=== PATIENT | female | born 1945 | race Caucasian/White ===

== ENCOUNTER 2021-04-12 09:54 | Outpatient (CLI) | payer MEDICARE, OTHER, SELFPAY ==
--- NOTE | 2021-04-12 10:17 | XR_ITS ---
WS: [id number] Right arm and humerus, 2 views, 04/12/2021 Clinical Data: RIGHT ARM PAIN Comparison: None. Findings: No fractures or dislocations are seen. The shaft of the humerus is intact. The soft tissues are norm al. XR/[place] [id number] Impression: Negative right arm and humerus.
--- NOTE | 2021-04-12 10:17 | XR_ITS ---
WS: [id number] Right hip, AP and frog leg views, 04/12/2021 Clinical Data: RT HIP PAIN Comparison: None. Findings: No fractures or dislocations are seen. The hip joint is intact. The soft tissues are not remarkable. The adjacent pelvis is normal. There is a spur of the acetabulum. 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 Tonnis classification: grade 1: sclerosis of femoral head and acetabulum or sli ght joint space narrowing or slight lipping at joint margins
--- NOTE | 2021-04-12 10:17 | XR_ITS ---
WS: [id number] Right shoulder, 3 views, 04/12/2021 Clinical Data: RIGHT ARM PAIN Comparison: None. Findings: No fractures or dislocations are seen. The AC joint is normal. The adjacent right clavicle, right sca pula and ribs are normal. The soft tissues are unremarkable. XR/XR shoulder RT min 2V* [id number] Impression: Negative right shoulder.
--- NOTE | 2021-04-12 10:17 | XR_ITS ---
WS: [id number] Right elbow, 3 views, 04/12/2021 Clinical Data: RIGHT ELBOW PAIN Comparison: None. Findings: No fractures or dislocations are seen. The radial head is normal. The soft tissues are unremarkable. XR/XR elbow RT min 3V* [id number] Impression: Negative right elbow.
== END 2021-04-12 09:55 | disposition home or self-care (01) ==
PROVIDERS: PCP Nurse Practitioner Family; Visit Provider Nurse Practitioner Family
DX: M79.601 Pain in right arm (principal); M25.551 Pain in right hip; M25.521 Pain in right elbow
CPT/HCPCS: 73030; 73060; 73080; 73502

== ENCOUNTER 2021-06-11 11:34 | Outpatient (CLI) | payer MEDICARE, OTHER, SELFPAY ==
--- NOTE | 2021-06-11 11:39 | US_ITS ---
WS: [id number] INDICATION: Lipoma. Lump right arm. TECHNIQUE: Ultrasound soft tissue area of concern. FINDINGS: Ultrasound soft tissue area of concern right upper arm. Small anechoic cystic appearing les ion in the area of concern measuring 3.5 x 3.4 x 3.7 mm. No internal vascularity. US/US soft tissue/extremity [id number] IMPRESSION: Small anechoic cystic appearing lesion in the area of concern measu ring 3.5 x 3.4 x 3.7 millimeters. No visualized lipoma.
== END 2021-06-11 11:35 | disposition home or self-care (01) ==
LOC: RAD 11:37
PROVIDERS: PCP Nurse Practitioner Family; Visit Provider Nurse Practitioner Family
DX: D17.21 Benign lipomatous neoplasm of skin and subcutaneous tissue of right arm (principal)
CPT/HCPCS: 76882

== ENCOUNTER 2021-06-24 06:00 | Outpatient (RCR) | payer MEDICARE, OTHER, SELFPAY | END 2021-07-22 13:06 | disposition home or self-care (01) | LOC: APT 06:00 | PROVIDERS: PCP Nurse Practitioner Family; Visit Provider Orthopaedic Surgery | DX: M48.062 Spinal stenosis, lumbar region with neurogenic claudication (principal); M41.129 Adolescent idiopathic scoliosis, site unspecified | CPT/HCPCS: 97110; 97162; 97164 ==

== ENCOUNTER → 2021-09-16 08:14 | Outpatient (BNVA) | payer MEDICARE, OTHER, SELFPAY | PROVIDERS: PCP Nurse Practitioner Family; Visit Provider Obstetrics & Gynecology | DX: D48.9 Neoplasm of uncertain behavior, unspecified (principal) | CPT/HCPCS: 76830 ==

== ENCOUNTER → 2022-09-16 09:14 | Outpatient (BNVA) | payer MEDICARE, OTHER, SELFPAY | PROVIDERS: PCP Nurse Practitioner Family; Visit Provider Nurse Practitioner Family | DX: D48.9 Neoplasm of uncertain behavior, unspecified (principal) | CPT/HCPCS: 88305 ==

== ENCOUNTER → 2023-06-01 08:03 | Outpatient (BNVA) | payer MEDICARE, OTHER, SELFPAY | PROVIDERS: PCP Nurse Practitioner Family; Visit Provider Internal Medicine | DX: E04.2 Nontoxic multinodular goiter (principal); E03.9 Hypothyroidism, unspecified; I48.91 Unspecified atrial fibrillation; Z79.890 Hormone replacement therapy | CPT/HCPCS: 99204 ==

== ENCOUNTER → 2023-06-08 09:13 | Outpatient (BNVA) | payer MEDICARE, OTHER, SELFPAY | PROVIDERS: PCP Nurse Practitioner Family; Visit Provider Internal Medicine | DX: E03.9 Hypothyroidism, unspecified (principal) | CPT/HCPCS: 84439 ==

== ENCOUNTER 2023-06-11 08:53 | Outpatient (CLI) | payer MEDICARE, OTHER, SELFPAY ==
--- NOTE | 2023-06-11 09:30 | US_ITS ---
WS: [id number] ULTRASOUND THYROID TECHNIQUE: Ultrasound of the thyroid. CLINICAL INFORMATION: thyroid nodules COMPARISON: None. FINDINGS: Thyroid: Atrophic, hypoechoic, and coarse heterogeneous thyroid echotexture. No suspicious cystic or solid thyroid nodules Right thyroid lobe: 2.9 cm x 0.7 cm x 0.9 cm 0.9 cc Left thyroid lobe: 2.4 cm x 0.7 cm x 0.7 cm. 0.6 cc Isthmus: 0.1 mm. Cervical lymphadenopathy: None. IMPRESSION: 1. Atrophic thyroid with coarse heterogeneous echotexture. 2. No suspicious cystic or solid nodules to target for biopsy.
== END 2023-06-11 08:54 | disposition home or self-care (01) ==
PROVIDERS: PCP Nurse Practitioner Family; Visit Provider Internal Medicine
DX: E03.9 Hypothyroidism, unspecified (principal); E04.2 Nontoxic multinodular goiter
CPT/HCPCS: 76536

== ENCOUNTER → 2023-08-18 07:39 | Outpatient (BNVA) | payer MEDICARE, OTHER, SELFPAY | PROVIDERS: PCP Nurse Practitioner Family; Visit Provider Internal Medicine | DX: E03.9 Hypothyroidism, unspecified (principal); I10 Essential (primary) hypertension; Z79.890 Hormone replacement therapy | CPT/HCPCS: 99214 ==

== ENCOUNTER → 2023-11-12 09:02 | Outpatient (BNVA) | payer MEDICARE, OTHER, SELFPAY | PROVIDERS: PCP Nurse Practitioner Family; Visit Provider Internal Medicine | DX: I10 Essential (primary) hypertension (principal); E03.9 Hypothyroidism, unspecified; R00.2 Palpitations | CPT/HCPCS: 99214 ==

== ENCOUNTER → 2024-01-27 08:19 | Outpatient (BNVA) | payer MEDICARE, OTHER, SELFPAY | PROVIDERS: PCP Nurse Practitioner Family; Visit Provider Internal Medicine | DX: E03.9 Hypothyroidism, unspecified (principal); I10 Essential (primary) hypertension; R00.2 Palpitations | CPT/HCPCS: 99214 ==

== ENCOUNTER 2024-03-22 07:15 | Outpatient (CLI) | payer MEDICARE, OTHER, SELFPAY ==
[2024-03-22 08:04] LABS: Free T4 Free Thyroxine 1.31 ng/dL (0.82-1.77); Thyroid Stimulating Hormone 11.35 uIU/mL (0.27-4.20)
== END 2024-03-22 07:16 | disposition home or self-care (01) ==
PROVIDERS: PCP Nurse Practitioner Family; Visit Provider Internal Medicine
DX: I10 Essential (primary) hypertension (principal)
CPT/HCPCS: 36415; 84439; 84443

== ENCOUNTER → 2024-03-28 07:44 | Outpatient (BNVA) | payer MEDICARE, OTHER, SELFPAY | PROVIDERS: PCP Nurse Practitioner Family; Visit Provider Internal Medicine | DX: I10 Essential (primary) hypertension (principal); E03.9 Hypothyroidism, unspecified; R00.2 Palpitations; I48.91 Unspecified atrial fibrillation; Z79.890 Hormone replacement therapy | CPT/HCPCS: 99214 ==

== ENCOUNTER 2024-05-31 12:42 | Outpatient (CLI) | payer MEDICARE, OTHER, SELFPAY ==
--- NOTE | 2024-05-31 12:40 | MM_ITS ---
WS: [id number] BILATERAL SCREENING DIGITAL TOMOSYNTHESIS MAMMOGRAM WITH CAD HISTORY: Z12.39 - Encounter for other screening for malignant neop... COMPARISON: 01/08/2022, 01/07/2021 and 11/13/2017 Bilateral CC and MLO views with tomosynthesis and synthetic mammography submitted. Computer aided det ection analyzed. Breast composition: The breasts are extremely dense, which lowers the sensitivity of mammography. No suspicious masses, microcalcifications or architectural distortion. Numerous bilateral asymmetries an d benign calcifications. No change in the overall pattern or increasing density throughout either [place] ast. MM/MM scr BI tomosynthesis [id number] IMPRESSION: BI-RADS: 2 - Benign FOLLOW UP: 1 Year Follow-up
== END 2024-05-31 12:43 | disposition home or self-care (01) ==
LOC: MOBLMAM 12:57
PROVIDERS: PCP Nurse Practitioner Women's Health; Visit Provider Nurse Practitioner Women's Health
DX: Z12.31 Encounter for screening mammogram for malignant neoplasm of breast (principal); Z12.39 Encounter for other screening for malignant neoplasm of breast; E03.9 Hypothyroidism, unspecified; I10 Essential (primary) hypertension; R00.2 Palpitations; I48.91 Unspecified atrial fibrillation; Z79.890 Hormone replacement therapy
CPT/HCPCS: 77063; 77067; 99214

== ENCOUNTER → 2024-06-08 09:38 | Outpatient (BNVA) | payer MEDICARE, OTHER, SELFPAY | PROVIDERS: PCP Nurse Practitioner Family; Visit Provider Nurse Practitioner Women's Health | DX: N92.6 Irregular menstruation, unspecified (principal); Z90.710 Acquired absence of both cervix and uterus | CPT/HCPCS: 76830 ==

== ENCOUNTER → 2024-06-23 10:01 | Outpatient (BNVA) | payer MEDICARE, OTHER, SELFPAY | PROVIDERS: PCP Nurse Practitioner Family; Visit Provider Nurse Practitioner Family | DX: L57.0 Actinic keratosis (principal); L82.1 Other seborrheic keratosis; D18.01 Hemangioma of skin and subcutaneous tissue; Z85.828 Personal history of other malignant neoplasm of skin; Z85.820 Personal history of malignant melanoma of skin; Z80.8 Family history of malignant neoplasm of other organs or systems | CPT/HCPCS: 17000; 99214 ==

== ENCOUNTER → 2024-11-29 07:43 | Outpatient (BNVA) | payer MEDICARE, OTHER, SELFPAY | PROVIDERS: PCP Nurse Practitioner Family; Visit Provider Internal Medicine | DX: I10 Essential (primary) hypertension (principal); E03.9 Hypothyroidism, unspecified; R00.2 Palpitations; I48.91 Unspecified atrial fibrillation | CPT/HCPCS: 99214 ==

== ENCOUNTER → 2024-12-22 09:26 | Outpatient (BNVA) | payer MEDICARE, OTHER, SELFPAY | PROVIDERS: PCP Nurse Practitioner Family; Visit Provider Nurse Practitioner Family | DX: L82.1 Other seborrheic keratosis (principal); K13.0 Diseases of lips; D18.01 Hemangioma of skin and subcutaneous tissue; Z08 Encounter for follow-up examination after completed treatment for malignant neoplasm; Z85.820 Personal history of malignant melanoma of skin; Z85.828 Personal history of other malignant neoplasm of skin; L57.0 Actinic keratosis | CPT/HCPCS: 17000; 99214 ==

== ENCOUNTER → 2025-02-28 10:43 | Outpatient (BNVA) | payer MEDICARE, OTHER, SELFPAY | PROVIDERS: PCP Nurse Practitioner Family; Visit Provider Nurse Practitioner Family | DX: F42.4 Excoriation (skin-picking) disorder (principal); D18.01 Hemangioma of skin and subcutaneous tissue; L82.1 Other seborrheic keratosis; Z08 Encounter for follow-up examination after completed treatment for malignant neoplasm; Z85.820 Personal history of malignant melanoma of skin; Z85.828 Personal history of other malignant neoplasm of skin; L57.0 Actinic keratosis | CPT/HCPCS: 17000; 99213 ==

== ENCOUNTER → 2025-04-07 08:40 | Outpatient (BNVA) | payer MEDICARE, OTHER, SELFPAY | PROVIDERS: PCP Nurse Practitioner Family; Visit Provider Internal Medicine | DX: I10 Essential (primary) hypertension (principal); E03.9 Hypothyroidism, unspecified; R00.2 Palpitations; I48.91 Unspecified atrial fibrillation | CPT/HCPCS: 99214 ==

== ENCOUNTER → 2025-05-02 09:23 | Outpatient (BNVA) | payer MEDICARE, OTHER, SELFPAY | PROVIDERS: PCP Nurse Practitioner Family; Visit Provider Nurse Practitioner Family | DX: L57.0 Actinic keratosis (principal); D69.2 Other nonthrombocytopenic purpura; Z08 Encounter for follow-up examination after completed treatment for malignant neoplasm; Z85.820 Personal history of malignant melanoma of skin; Z85.828 Personal history of other malignant neoplasm of skin | CPT/HCPCS: 17110; 99214 ==

== ENCOUNTER 2025-06-05 09:47 | Outpatient (CLI) | payer MEDICARE, OTHER, SELFPAY ==
[2025-06-05 11:42] LABS: Free T4 Free Thyroxine 1.51 ng/dL (0.82-1.77); Thyroid Stimulating Hormone 8.45 uIU/mL (0.27-4.20)
== END 2025-06-05 09:48 | disposition home or self-care (01) ==
LOC: LAB 09:49
PROVIDERS: PCP Nurse Practitioner Family; Visit Provider Internal Medicine
DX: I10 Essential (primary) hypertension (principal); E03.9 Hypothyroidism, unspecified
CPT/HCPCS: 84439; 84443

== ENCOUNTER → 2025-06-13 08:26 | Outpatient (BNVA) | payer MEDICARE, OTHER, SELFPAY | PROVIDERS: PCP Nurse Practitioner Family; Visit Provider Internal Medicine Endocrinology, Diabetes & Metabolism | DX: E03.9 Hypothyroidism, unspecified (principal); I10 Essential (primary) hypertension; R00.2 Palpitations; I48.91 Unspecified atrial fibrillation; Z86.79 Personal history of other diseases of the circulatory system | CPT/HCPCS: 99213 ==

== ENCOUNTER 2025-07-04 14:11 | Outpatient (CLI) | payer MEDICARE, OTHER, SELFPAY ==
--- NOTE | 2025-07-04 14:20 | MM_ITS ---
WS: [id number] BILATERAL 3D TOMOSYNTHESIS DIGITAL SCREENING MAMMOGRAM WITH CAD CLINICAL INFORMATION: SCREENING HISTORY: Screening mammogram. No current complaints. COMPARISON: 2023 TECHNIQUE: Bilateral CC and MLO. FINDINGS: The breast are composed of extremely dense tissue, which can limit the detection of small underlying mass lesions. No suspicious focal mass, asymmetry, calcifications, or architectural distortion. No evidence of malignancy. Punctate and lucent centered calcifications. Stable nodular densities bilaterally MM/MM [facility] tomosynthesis [id number] IMPRESSION: DENSITY: The breasts are extremely dense, which lowers the sensitivity of mammo graphy. BI-RADS: 2 - Benign FOLLOW UP: 1 Year Follow-up Recommend return to annual screening mammography.
== END 2025-07-04 14:12 | disposition home or self-care (01) ==
PROVIDERS: PCP Nurse Practitioner Family; Visit Provider Nurse Practitioner Family
DX: Z12.31 Encounter for screening mammogram for malignant neoplasm of breast (principal); R92.343 Mammographic extreme density, bilateral breasts; N63.20 Unspecified lump in the left breast, unspecified quadrant; N63.10 Unspecified lump in the right breast, unspecified quadrant; R92.1 Mammographic calcification found on diagnostic imaging of breast
CPT/HCPCS: 77063; 77067

== ENCOUNTER 2025-07-06 13:26 | Outpatient (CLI) | payer MEDICARE, OTHER, SELFPAY ==
--- NOTE | 2025-07-06 13:31 | XR_ITS ---
WS: [id number] Exam: XR ribs RT mn 3V w CXR1V [id number] Date/Time of Exam: 07/06/2025 1:32 PM Reason For Exam: RIB PAIN No acute RIGHT rib fracture noted. The lungs are clear and fully inflated. Normal cardiomediastinal silhouette. No pleural or pulmonary reactive changes. XR/XR ribs RT mn 3V w CXR1V [id number] IMPRESSION: 1. Negative RIGHT rib study. No acute cardiopulmonary process.
--- NOTE | 2025-07-06 13:31 | XR_ITS ---
WS: [id number] Exam: XR thoracic spine 2V [id number] Date/Time of Exam: 07/06/2025 1:32 PM Reason For Exam: BACK PAIN No acute fracture. Lower thoracic mild levoscoliosis. Normal paraspinal soft tissues. Mild spondylosis. XR/XR thoracic spine 2V [id number] IMPRESSION: 1. Minimal degenerative changes and mild lower thoracic scoliosis. 2. No fracture or malalignment.
== END 2025-07-06 13:27 | disposition home or self-care (01) ==
LOC: RAD 13:27
PROVIDERS: PCP Nurse Practitioner Family; Visit Provider Nurse Practitioner Family
DX: R07.81 Pleurodynia (principal); M54.9 Dorsalgia, unspecified; M47.814 Spondylosis without myelopathy or radiculopathy, thoracic region; M41.84 Other forms of scoliosis, thoracic region
CPT/HCPCS: 71101; 72070

== ENCOUNTER 2025-08-02 10:16 | Outpatient (CLI) | payer MEDICARE, OTHER, SELFPAY ==
[2025-08-02 11:37] LABS: Thyroid Stimulating Hormone 0.80 uIU/mL (0.27-4.20)
== END 2025-08-02 10:17 | disposition home or self-care (01) ==
LOC: LAB 10:17
PROVIDERS: PCP Nurse Practitioner Family; Visit Provider Internal Medicine Endocrinology, Diabetes & Metabolism
DX: E03.9 Hypothyroidism, unspecified (principal)
CPT/HCPCS: 36415; 84443; 86364

== ENCOUNTER → 2025-08-09 09:22 | Outpatient (BNVA) | payer MEDICARE, OTHER, SELFPAY | PROVIDERS: PCP Nurse Practitioner Family; Visit Provider Internal Medicine Endocrinology, Diabetes & Metabolism | DX: E03.9 Hypothyroidism, unspecified (principal); I10 Essential (primary) hypertension; R00.2 Palpitations; I48.91 Unspecified atrial fibrillation | CPT/HCPCS: 99214 ==